=== PATIENT | female | born 1950 | race Hispanic/Latino ===

== ENCOUNTER 2021-10-22 12:29 | Inpatient (IN) | payer MEDICARE, OTHER ==
[~2021-10-22] VITALS: Ht 157.5 cm; Wt 66.8 kg
[2021-10-22 12:53] LABS: APPEARANCE,URINE Cloudy (CLEAR); BILIRUBIN,URINE Negative (NEGATIVE); COLOR,URINE Yellow (YELLOW); GLUCOSE, URINE (UA) >=1000 mg/dL (NEGATIVE); KETONES,URINE 15 mg/dL (NEGATIVE); LEUKOCYTE ESTERASE ,URINE Trace (NEGATIVE); NITRATE,URINE Positive (NEGATIVE); OCCULT BLOOD,URINE Small (NEGATIVE); PH,URINE 5.5 (5.0-8.0); PROTEIN,URINE POS 1+ mg/dL (NEGATIVE)
[2021-10-22 13:19] LABS: BASOPHILS % (AUTO) 0.3 % (0.0-5.0); EOSINOPHILS % (AUTO) 0.3 % (0.0-8.0); HEMATOCRIT 42.5 % (36-48); LYMPHOCYTES % (AUTO) 11.5 % (21.0-51.0); MEAN CORPUSCULAR HEMOGLOBIN 26.9 pg (27.0-33.0); MEAN CORPUSCULAR HGB CONC 32.7 g/dL (32.0-36.0); MEAN CORPUSCULAR VOLUME 82.4 fL (79-99); MONOCYTES % (AUTO) 7.5 % (3.0-13.0); NEUTROPHILS % (AUTO) 80.1 % (40.0-77.0); PLATELET COUNT (AUTO) 236 K/uL (130-400); RED BLOOD CELL COUNT(AUTO) 5.16 MIL/uL (4.00-5.50); RED CELL DISTRIBUTION WIDTH 14.6 % (11.0-15.5); WHITE BLOOD COUNT (AUTO) 10.6 K/uL (4.8-10.8)
[2021-10-22 13:24] LABS: RBC,URINE 0-1 /HPF (0-1)
[2021-10-22 13:25] LABS: BACTERIA,URINE Many /HPF (None Seen); SQUAMOUS EPITHELIAL CELL,UR Few /HPF (0-2)
[2021-10-22] MEDS ORDERED: INSULIN HUMULIN R 100 UNIT/ML 3ML SQ ONE (13:30)
[2021-10-22] MEDS ORDERED: 0.9%NACL 1000ML 1,000 ML IV ONE (13:30)
[2021-10-22 13:33] LABS: ALBUMIN 3.6 g/dL (3.5-5.0); BILIRUBIN,TOTAL 0.4 mg/dL (0.2-1.0); CREATININE 1.1 mg/dL (0.5-1.5); CRP QUANTITATIVE 83.7 mg/L (0.00-9.0); POTASSIUM 4.3 mmol/L (3.5-5.1); TOTAL PROTEIN, SERUM 8.5 g/dL (6.0-8.3)
[2021-10-22] MEDS ORDERED: SPIR25TA6 PO (16:10)
[2021-10-22] MEDS ORDERED: ATOR10 PO (16:10)
[2021-10-22] MEDS ORDERED: METF-444 PO (16:11)
[2021-10-22] MEDS: 0.9%NACL 1000ML 1,000 ML IV SCH (16:30)
[2021-10-22] MEDS ORDERED: ONDANSETRON 4MG INJ IV PRN (16:30)
[2021-10-22] MEDS: HYDRALAZINE 20MG/ML VIAL IV PRN (16:30)
[2021-10-22] MEDS ORDERED: VANCOMYCIN PROTOCOL PER PHARMACY IV PRN (16:30)
[2021-10-22] MEDS ORDERED: DIPHENHYDRAMINE HCL 25 MG CAPSULE PO PRN (16:30)
[2021-10-22] MEDS ORDERED: ACETAMINOPHEN 325 MG TAB PO PRN ×2 (16:30)
[2021-10-22 16:45] LABS: CHOLESTEROL 216 mg/dL (<200); HDL CHOLESTEROL 40 mg/dL (35-85); LDL DIRECT 152 mg/dL (0-99); TRIGLYCERIDES 172 mg/dL (30-200)
[2021-10-22] MEDS: FAMOTIDINE 20MG TAB PO SCH (16:46)
[2021-10-22] MEDS: INSULIN HUMULIN R 100 UNIT/ML 3ML SQ SCH (17:00)
[2021-10-22] MEDS: VANCOMYCIN 1G/250ML KIT 250 ML IV SCH (17:26)
[2021-10-22 17:27] LABS: HEMOGLOBIN A1C 12.8 % (4.0-6.0)
[2021-10-22] MEDS ORDERED: LOSA100T58 PO (19:01)
[2021-10-22] MEDS: ZOSYN 3.375GM+NS 50ML 50 ML IV SCH (20:59)
[2021-10-22] MEDS ORDERED: INSULIN GLARGINE 100 UNITS/ML 10 ML VIAL SQ SCH (21:00)
[2021-10-22] MEDS ORDERED: FAMOTIDINE 20MG VIAL IV SCH (21:00)
[2021-10-23] MEDS: 0.9%NACL 1000ML 1,000 ML IV SCH ×3 (03:15→22:28)
[2021-10-23] MEDS: ACETAMINOPHEN WITH CODEINE 1 TAB TAB PO PRN (05:21)
[2021-10-23] MEDS: ZOSYN 3.375GM+NS 50ML 50 ML IV SCH ×3 (05:21→20:19)
[2021-10-23] MEDS: INSULIN HUMULIN R 100 UNIT/ML 3ML SQ SCH ×6 (07:30→20:31)
[2021-10-23 08:46] LABS: HEMATOCRIT 40.9 % (36-48); MEAN CORPUSCULAR VOLUME 84.2 fL (79-99); RED BLOOD CELL COUNT(AUTO) 4.86 MIL/uL (4.00-5.50); RED CELL DISTRIBUTION WIDTH 14.8 % (11.0-15.5); WHITE BLOOD COUNT (AUTO) 6.2 K/uL (4.8-10.8)
[2021-10-23 08:56] LABS: CREATININE 0.9 mg/dL (0.5-1.5); POTASSIUM 4.1 mmol/L (3.5-5.1)
[2021-10-23] MEDS: ENOXAPARIN SODIUM 40 MG/0.4 ML SYRINGE SQ SCH (09:00)
[2021-10-23] MEDS: FAMOTIDINE 20MG TAB PO SCH (09:00)
[2021-10-23 09:01] LABS: BILIRUBIN,TOTAL 0.5 mg/dL (0.2-1.0); TOTAL PROTEIN, SERUM 7.5 g/dL (6.0-8.3)
[2021-10-23 12:22] VITALS: BP 171/82
[2021-10-23] MEDS: CLOPIDOGREL 75MG TAB PO SCH (12:37)
[2021-10-23] MEDS: SPIRONOLACTONE 25 MG TAB PO SCH (12:37)
[2021-10-23] MEDS: ASPIRIN 81 MG EC TAB PO SCH (12:37)
[2021-10-23] MEDS: LOSARTAN 100 MG TABLET PO SCH (12:37)
[2021-10-23] MEDS: EZETIMIBE 10 MG TAB PO SCH (12:37)
[2021-10-23 15:58] VITALS: BP 130/58
[2021-10-23] MEDS ORDERED: 0.9% NACL 250ML 250 ML ONE (16:38)
[2021-10-23] MEDS: VANCOMYCIN 1G/250ML KIT 250 ML IV SCH (16:48)
[2021-10-23] MEDS ORDERED: INSULIN HUMULIN R 100 UNIT/ML 3ML SQ SCH (17:00)
[2021-10-23 19:43] VITALS: BP 174/78
[2021-10-23] MEDS: ATORVASTATIN 40 MG TABLET PO SCH (20:19)
[2021-10-23] MEDS: INSULIN GLARGINE 100 UNITS/ML 10 ML VIAL SQ SCH (20:31)
[2021-10-23] MEDS: HYDRALAZINE 20MG/ML VIAL IV PRN (20:47)
[2021-10-24 00:28] VITALS: BP 113/61
[2021-10-24 04:16] VITALS: BP 139/62
[2021-10-24] MEDS: ZOSYN 3.375GM+NS 50ML 50 ML IV SCH ×2 (05:15→12:45)
[2021-10-24] MEDS: 0.9%NACL 1000ML 1,000 ML IV SCH ×3 (06:37→20:23)
[2021-10-24] MEDS: INSULIN HUMULIN R 100 UNIT/ML 3ML SQ SCH ×7 (06:41→20:20)
[2021-10-24 08:00] VITALS: BP 160/76
[2021-10-24] MEDS: SPIRONOLACTONE 25 MG TAB PO SCH (09:54)
[2021-10-24] MEDS: ASPIRIN 81 MG EC TAB PO SCH (09:55)
[2021-10-24] MEDS: LOSARTAN 100 MG TABLET PO SCH (09:55)
[2021-10-24] MEDS: FAMOTIDINE 20MG TAB PO SCH (09:56)
[2021-10-24] MEDS: EZETIMIBE 10 MG TAB PO SCH (09:56)
[2021-10-24] MEDS: CLOPIDOGREL 75MG TAB PO SCH (09:56)
[2021-10-24] MEDS: ENOXAPARIN SODIUM 40 MG/0.4 ML SYRINGE SQ SCH (09:57)
[2021-10-24 10:36] LABS: HEMATOCRIT 40.6 % (36-48); MEAN CORPUSCULAR HEMOGLOBIN 26.9 pg (27.0-33.0); MEAN CORPUSCULAR VOLUME 84.1 fL (79-99); RED BLOOD CELL COUNT(AUTO) 4.83 MIL/uL (4.00-5.50); WHITE BLOOD COUNT (AUTO) 6.7 K/uL (4.8-10.8)
[2021-10-24 10:50] LABS: CREATININE 0.9 mg/dL (0.5-1.5); POTASSIUM 3.5 mmol/L (3.5-5.1)
[2021-10-24 11:57] VITALS: BP 178/85
[2021-10-24] MEDS: HYDRALAZINE 20MG/ML VIAL IV PRN (12:59)
[2021-10-24] MEDS ORDERED: AMLODIPINE 5 MG TAB PO SCH (15:00)
[2021-10-24] MEDS: CEFAZOLIN SODIUM 1 GM VIAL IVP SCH ×2 (15:10→20:23)
[2021-10-24] MEDS: ACETAMINOPHEN WITH CODEINE 1 TAB TAB PO PRN (15:24)
[2021-10-24 16:00] VITALS: BP 151/70
[2021-10-24 20:00] VITALS: BP 139/72
[2021-10-24] MEDS: ATORVASTATIN 40 MG TABLET PO SCH (20:23)
[2021-10-24] MEDS: INSULIN GLARGINE 100 UNITS/ML 10 ML VIAL SQ SCH (20:31)
[2021-10-25] VITALS (25 sets, daily range): BP systolic 122–178; BP diastolic 33–93
[2021-10-25 04:51] LABS: HEMATOCRIT 34.5 % (36-48); MEAN CORPUSCULAR HEMOGLOBIN 26.4 pg (27.0-33.0); MEAN CORPUSCULAR HGB CONC 31.9 g/dL (32.0-36.0); MEAN CORPUSCULAR VOLUME 82.9 fL (79-99); RED BLOOD CELL COUNT(AUTO) 4.16 MIL/uL (4.00-5.50); RED CELL DISTRIBUTION WIDTH 15.1 % (11.0-15.5)
[2021-10-25 05:10] LABS: CREATININE 0.8 mg/dL (0.5-1.5); POTASSIUM 3.3 mmol/L (3.5-5.1)
[2021-10-25] MEDS: INSULIN HUMULIN R 100 UNIT/ML 3ML SQ SCH ×7 (05:59→21:00)
[2021-10-25] MEDS: CEFAZOLIN SODIUM 1 GM VIAL IVP SCH ×3 (06:03→21:20)
[2021-10-25] MEDS: ENOXAPARIN SODIUM 40 MG/0.4 ML SYRINGE SQ SCH (08:23)
[2021-10-25] MEDS ORDERED: BUPIVACAINE/PF 0.5% 10ML VIAL ONE (08:25)
[2021-10-25] MEDS ORDERED: LIDOCAINE HCL 1% 20 ML VIAL ONE (08:25)
[2021-10-25] MEDS ORDERED: MIDAZOLAM HCL 1 MG/ML 2ML VIAL ONE (08:49)
[2021-10-25] MEDS ORDERED: FENTANYL CITRATE PF 50 MCG/1 ML 2ML VIAL ONE (08:50)
[2021-10-25] MEDS ORDERED: PROPOFOL 10 MG/ML 20ML VIAL IV ONE (08:51)
[2021-10-25] MEDS: CLOPIDOGREL 75MG TAB PO SCH (09:00)
[2021-10-25] MEDS ORDERED: AMLODIPINE 5 MG TAB PO ONE (09:00)
[2021-10-25] MEDS: 0.9%NACL 1000ML 1,000 ML IV SCH (10:32)
[2021-10-25] MEDS: SPIRONOLACTONE 25 MG TAB PO SCH (12:19)
[2021-10-25] MEDS: EZETIMIBE 10 MG TAB PO SCH (12:20)
[2021-10-25] MEDS: ASPIRIN 81 MG EC TAB PO SCH (12:20)
[2021-10-25] MEDS: LOSARTAN 100 MG TABLET PO SCH (12:20)
[2021-10-25] MEDS: FAMOTIDINE 20MG TAB PO SCH (12:22)
[2021-10-25] MEDS: ACETAMINOPHEN WITH CODEINE 1 TAB TAB PO PRN (12:45)
[2021-10-25] MEDS ORDERED: KCL 20 MEQ ERTAB PO SCH (17:00)
[2021-10-25] MEDS: ATORVASTATIN 40 MG TABLET PO SCH (21:20)
[2021-10-25] MEDS: INSULIN GLARGINE 100 UNITS/ML 10 ML VIAL SQ SCH (21:31)
[2021-10-25] MEDS: HYDRALAZINE 20MG/ML VIAL IV PRN (23:26)
[2021-10-26 03:36] VITALS: BP 139/73
[2021-10-26 04:27] LABS: HEMATOCRIT 36.1 % (36-48); MEAN CORPUSCULAR HEMOGLOBIN 26.3 pg (27.0-33.0); MEAN CORPUSCULAR HGB CONC 31.6 g/dL (32.0-36.0); MEAN CORPUSCULAR VOLUME 83.4 fL (79-99); RED BLOOD CELL COUNT(AUTO) 4.33 MIL/uL (4.00-5.50)
[2021-10-26 04:42] LABS: CREATININE 0.9 mg/dL (0.5-1.5); POTASSIUM 3.6 mmol/L (3.5-5.1)
[2021-10-26] MEDS: CEFAZOLIN SODIUM 1 GM VIAL IVP SCH ×3 (05:19→20:17)
[2021-10-26] MEDS: INSULIN HUMULIN R 100 UNIT/ML 3ML SQ SCH ×7 (06:16→20:30)
[2021-10-26] MEDS: ACETAMINOPHEN WITH CODEINE 1 TAB TAB PO PRN ×2 (06:20→20:21)
[2021-10-26] MEDS ORDERED: MORPHINE 2 MG SYG IVP PRN ×2 (07:00→07:30)
[2021-10-26 08:44] VITALS: BP 131/68
[2021-10-26] MEDS: ENOXAPARIN SODIUM 40 MG/0.4 ML SYRINGE SQ SCH (09:00)
[2021-10-26] MEDS: SPIRONOLACTONE 25 MG TAB PO SCH (09:44)
[2021-10-26] MEDS: LOSARTAN 100 MG TABLET PO SCH (09:44)
[2021-10-26] MEDS: EZETIMIBE 10 MG TAB PO SCH (09:44)
[2021-10-26] MEDS: CLOPIDOGREL 75MG TAB PO SCH (09:44)
[2021-10-26] MEDS: FAMOTIDINE 20MG TAB PO SCH (09:45)
[2021-10-26] MEDS: ASPIRIN 81 MG EC TAB PO SCH (09:45)
[2021-10-26 11:22] VITALS: BP 138/73
[2021-10-26] MEDS ORDERED: KCL 20 MEQ ERTAB PO SCH (11:30)
[2021-10-26 17:10] VITALS: BP 155/80
[2021-10-26 19:42] VITALS: BP 143/79
[2021-10-26] MEDS: ATORVASTATIN 40 MG TABLET PO SCH (20:17)
[2021-10-26] MEDS: INSULIN GLARGINE 100 UNITS/ML 10 ML VIAL SQ SCH (20:31)
[2021-10-26 23:21] VITALS: BP 135/69
[2021-10-27 03:20] VITALS: BP 130/67
[2021-10-27 04:27] LABS: HEMATOCRIT 34.7 % (36-48); MEAN CORPUSCULAR HEMOGLOBIN 26.8 pg (27.0-33.0); MEAN CORPUSCULAR VOLUME 83.8 fL (79-99); RED BLOOD CELL COUNT(AUTO) 4.14 MIL/uL (4.00-5.50); RED CELL DISTRIBUTION WIDTH 15.1 % (11.0-15.5); WHITE BLOOD COUNT (AUTO) 8.3 K/uL (4.8-10.8)
[2021-10-27 04:46] LABS: INR 1.03 (0.85-1.15); PROTHROMBIN TIME 11.2 SEC (9.6-11.6)
[2021-10-27 04:48] LABS: CREATININE 0.9 mg/dL (0.5-1.5); PARTIAL THROMBOPLASTIN TIME 28.2 SEC (26.3-35.5); POTASSIUM 3.9 mmol/L (3.5-5.1)
[2021-10-27] MEDS: CEFAZOLIN SODIUM 1 GM VIAL IVP SCH ×3 (05:39→23:00)
[2021-10-27] MEDS: INSULIN HUMULIN R 100 UNIT/ML 3ML SQ SCH ×7 (05:45→21:20)
[2021-10-27 08:19] VITALS: BP 141/76
[2021-10-27] MEDS: FAMOTIDINE 20MG TAB PO SCH (09:18)
[2021-10-27] MEDS: EZETIMIBE 10 MG TAB PO SCH (09:18)
[2021-10-27] MEDS: SPIRONOLACTONE 25 MG TAB PO SCH (09:18)
[2021-10-27] MEDS: ASPIRIN 81 MG EC TAB PO SCH (09:18)
[2021-10-27] MEDS: LOSARTAN 100 MG TABLET PO SCH (09:19)
[2021-10-27] MEDS: CLOPIDOGREL 75MG TAB PO SCH (09:20)
[2021-10-27] MEDS: ENOXAPARIN SODIUM 40 MG/0.4 ML SYRINGE SQ SCH (09:22)
[2021-10-27 11:35] VITALS: BP 152/76
[2021-10-27 16:41] VITALS: BP 161/91
[2021-10-27] MEDS: ATORVASTATIN 40 MG TABLET PO SCH (20:11)
[2021-10-27] MEDS: ACETAMINOPHEN WITH CODEINE 1 TAB TAB PO PRN (20:12)
[2021-10-27] MEDS: INSULIN GLARGINE 100 UNITS/ML 10 ML VIAL SQ SCH (21:20)
[2021-10-27 21:47] VITALS: BP 143/76
[2021-10-28] VITALS (11 sets, daily range): BP systolic 134–185; BP diastolic 70–94
[2021-10-28 04:41] LABS: HEMATOCRIT 34.9 % (36-48); MEAN CORPUSCULAR HEMOGLOBIN 26.4 pg (27.0-33.0); MEAN CORPUSCULAR HGB CONC 31.8 g/dL (32.0-36.0); MEAN CORPUSCULAR VOLUME 82.9 fL (79-99); RED BLOOD CELL COUNT(AUTO) 4.21 MIL/uL (4.00-5.50); RED CELL DISTRIBUTION WIDTH 14.9 % (11.0-15.5); WHITE BLOOD COUNT (AUTO) 7.6 K/uL (4.8-10.8)
[2021-10-28 04:54] LABS: CREATININE 0.9 mg/dL (0.5-1.5); POTASSIUM 3.5 mmol/L (3.5-5.1)
[2021-10-28] MEDS: INSULIN HUMULIN R 100 UNIT/ML 3ML SQ SCH ×7 (05:53→21:18)
[2021-10-28] MEDS: CEFAZOLIN SODIUM 1 GM VIAL IVP SCH ×3 (06:37→21:15)
[2021-10-28] MEDS: ASPIRIN 81 MG EC TAB PO SCH (09:18)
[2021-10-28] MEDS: FAMOTIDINE 20MG TAB PO SCH (09:18)
[2021-10-28] MEDS: LOSARTAN 100 MG TABLET PO SCH (09:18)
[2021-10-28] MEDS: ENOXAPARIN SODIUM 40 MG/0.4 ML SYRINGE SQ SCH (09:18)
[2021-10-28] MEDS: SPIRONOLACTONE 25 MG TAB PO SCH (09:18)
[2021-10-28] MEDS: CLOPIDOGREL 75MG TAB PO SCH (09:18)
[2021-10-28] MEDS: EZETIMIBE 10 MG TAB PO SCH (09:18)
[2021-10-28] MEDS ORDERED: SODIUM BICARB 50MEQ 50ML VIAL 50 ML ONE (11:41)
[2021-10-28] MEDS ORDERED: HEPARIN 10,000 UNIT/10ML (1,000 UNIT/ML) VIAL ONE ×2 (11:41→14:14)
[2021-10-28] MEDS ORDERED: FENTANYL CITRATE PF 50 MCG/1 ML 2ML VIAL ONE (11:42)
[2021-10-28] MEDS ORDERED: IODIXANOL 320 MG/ML 100 ML VIAL ONE (11:42)
[2021-10-28] MEDS ORDERED: MIDAZOLAM HCL 1 MG/ML 2ML VIAL ONE (11:42)
[2021-10-28] MEDS ORDERED: LIDOCAINE HCL 400MG/20ML VIAL ONE (11:42)
[2021-10-28] MEDS ORDERED: NITROGLYCERIN 2 MG VIAL IV ONE (11:42)
[2021-10-28] MEDS ORDERED: ASPIRIN 325MG EC TAB PO ONE (13:21)
[2021-10-28] MEDS ORDERED: CLOPIDOGREL 300MG TAB ONE (13:21)
[2021-10-28] MEDS ORDERED: 0.9%NACL 1000ML 1,000 ML IV SCH (15:00)
[2021-10-28] MEDS: HYDRALAZINE 20MG/ML VIAL IV PRN (16:44)
[2021-10-28] MEDS: ACETAMINOPHEN WITH CODEINE 1 TAB TAB PO PRN (21:15)
[2021-10-28] MEDS: ATORVASTATIN 40 MG TABLET PO SCH (21:15)
[2021-10-28] MEDS: INSULIN GLARGINE 100 UNITS/ML 10 ML VIAL SQ SCH (21:18)
[2021-10-29] VITALS: BP 133/66
[2021-10-29 04:00] VITALS: BP 141/70
[2021-10-29 04:51] LABS: HEMATOCRIT 33.8 % (36-48); MEAN CORPUSCULAR HEMOGLOBIN 26.2 pg (27.0-33.0); MEAN CORPUSCULAR HGB CONC 31.7 g/dL (32.0-36.0); MEAN CORPUSCULAR VOLUME 82.8 fL (79-99); RED BLOOD CELL COUNT(AUTO) 4.08 MIL/uL (4.00-5.50); RED CELL DISTRIBUTION WIDTH 15.1 % (11.0-15.5); WHITE BLOOD COUNT (AUTO) 7.4 K/uL (4.8-10.8)
[2021-10-29 05:07] LABS: CREATININE 0.9 mg/dL (0.5-1.5); POTASSIUM 3.6 mmol/L (3.5-5.1)
[2021-10-29] MEDS: CEFAZOLIN SODIUM 1 GM VIAL IVP SCH ×3 (05:56→21:29)
[2021-10-29] MEDS: INSULIN HUMULIN R 100 UNIT/ML 3ML SQ SCH ×5 (06:19→21:39)
[2021-10-29 08:00] VITALS: BP 144/78
[2021-10-29] MEDS: LOSARTAN 100 MG TABLET PO SCH (09:41)
[2021-10-29] MEDS: SPIRONOLACTONE 25 MG TAB PO SCH (09:41)
[2021-10-29] MEDS: ASPIRIN 81 MG EC TAB PO SCH (09:41)
[2021-10-29] MEDS: EZETIMIBE 10 MG TAB PO SCH (09:41)
[2021-10-29] MEDS: FAMOTIDINE 20MG TAB PO SCH (09:42)
[2021-10-29] MEDS: CLOPIDOGREL 75MG TAB PO SCH (09:42)
[2021-10-29 12:00] VITALS: BP 148/73
[2021-10-29] MEDS ORDERED: MAGNESIUM 2GM PREMIX 50ML 50 ML IV PRN (12:00)
[2021-10-29] MEDS: FLUCONAZOLE 100 MG TAB PO SCH (14:29)
[2021-10-29 16:00] VITALS: BP 151/84
[2021-10-29 20:00] VITALS: BP 160/81
[2021-10-29] MEDS: ATORVASTATIN 40 MG TABLET PO SCH (21:29)
[2021-10-29] MEDS: INSULIN GLARGINE 100 UNITS/ML 10 ML VIAL SQ SCH (21:41)
[2021-10-30] VITALS: BP 144/65
[2021-10-30 04:00] VITALS: BP 149/67
[2021-10-30] MEDS: CEFAZOLIN SODIUM 1 GM VIAL IVP SCH ×2 (04:13→13:12)
[2021-10-30] MEDS: INSULIN HUMULIN R 100 UNIT/ML 3ML SQ SCH ×6 (06:07→17:06)
[2021-10-30 07:47] VITALS: BP 140/75
[2021-10-30] MEDS ORDERED: ATOR40TA69 PO (08:24)
[2021-10-30] MEDS ORDERED: CLOP75TA14 PO (08:24)
[2021-10-30] MEDS ORDERED: AEC81 PO (08:24)
[2021-10-30] MEDS: SPIRONOLACTONE 25 MG TAB PO SCH (10:06)
[2021-10-30] MEDS: EZETIMIBE 10 MG TAB PO SCH (10:07)
[2021-10-30] MEDS: ASPIRIN 81 MG EC TAB PO SCH (10:07)
[2021-10-30] MEDS: FAMOTIDINE 20MG TAB PO SCH (10:07)
[2021-10-30] MEDS: LOSARTAN 100 MG TABLET PO SCH (10:07)
[2021-10-30] MEDS: CLOPIDOGREL 75MG TAB PO SCH (10:07)
[2021-10-30 12:00] VITALS: BP 169/84
[2021-10-30] MEDS: FLUCONAZOLE 100 MG TAB PO SCH (14:23)
[2021-10-30 16:00] VITALS: BP 179/88
[2021-10-30 17:45] VITALS: BP 148/79
== END 2021-10-30 20:12 | DRG 240 ==
LOC: EDH 12:29 → EDHIP 16:13 → 3CH 10-23 10:57
PROVIDERS: ADMIT Hospitalist; ATTEND Hospitalist
PROC: 0JBR0ZZ Excision of Left Foot Subcutaneous Tissue and Fascia, Open Approach (ICD-10-PCS; 2021-10-22)
PROC: 0HBRXZZ Excision of Toe Nail, External Approach (ICD-10-PCS; 2021-10-22)
PROC: 0HBRXZZ Excision of Toe Nail, External Approach (ICD-10-PCS; 2021-10-22)
PROC: 0HBRXZZ Excision of Toe Nail, External Approach (ICD-10-PCS; 2021-10-22)
PROC: 0HBRXZZ Excision of Toe Nail, External Approach (ICD-10-PCS; 2021-10-22)
PROC: 0HBRXZZ Excision of Toe Nail, External Approach (ICD-10-PCS; 2021-10-22)
PROC: 0HBRXZZ Excision of Toe Nail, External Approach (ICD-10-PCS; 2021-10-22)
PROC: 0HBRXZZ Excision of Toe Nail, External Approach (ICD-10-PCS; 2021-10-22)
PROC: 0HBRXZZ Excision of Toe Nail, External Approach (ICD-10-PCS; 2021-10-22)
PROC: 0HBRXZZ Excision of Toe Nail, External Approach (ICD-10-PCS; 2021-10-22)
PROC: 0HBRXZZ Excision of Toe Nail, External Approach (ICD-10-PCS; 2021-10-22)
PROC: 0Y6N0ZC Detachment at Left Foot, Partial 3rd Ray, Open Approach (ICD-10-PCS; principal; 2021-10-25 09:44)
PROC: 047L3ZZ Dilation of Left Femoral Artery, Percutaneous Approach (ICD-10-PCS; 2021-10-28)
PROC: 047N3ZZ Dilation of Left Popliteal Artery, Percutaneous Approach (ICD-10-PCS; 2021-10-28)
PROC: 047U34Z Dilation of Left Peroneal Artery with Drug-eluting Intraluminal Device, Percutaneous Approach (ICD-10-PCS; 2021-10-28)
PROC: B4101ZZ Fluoroscopy of Abdominal Aorta using Low Osmolar Contrast (ICD-10-PCS; 2021-10-28)
PROC: B41G1ZZ Fluoroscopy of Left Lower Extremity Arteries using Low Osmolar Contrast (ICD-10-PCS; 2021-10-28)
DX: T82.856A Stenosis of peripheral vascular stent, initial encounter (principal); E11.52 Type 2 diabetes mellitus with diabetic peripheral angiopathy with gangrene; I70.262 Atherosclerosis of native arteries of extremities with gangrene, left leg; N39.0 Urinary tract infection, site not specified; L03.116 Cellulitis of left lower limb; M86.8X7 Other osteomyelitis, ankle and foot; M00.872 Arthritis due to other bacteria, left ankle and foot; E11.65 Type 2 diabetes mellitus with hyperglycemia; I10 Essential (primary) hypertension; E78.5 Hyperlipidemia, unspecified; E11.621 Type 2 diabetes mellitus with foot ulcer; E11.69 Type 2 diabetes mellitus with other specified complication; E66.9 Obesity, unspecified; B96.20 Unspecified Escherichia coli [E. coli] as the cause of diseases classified elsewhere; Z20.822 Contact with and (suspected) exposure to COVID-19; E78.00 Pure hypercholesterolemia, unspecified; B35.1 Tinea unguium; L60.2 Onychogryphosis; E11.42 Type 2 diabetes mellitus with diabetic polyneuropathy; R09.89 Other specified symptoms and signs involving the circulatory and respiratory systems; L97.529 Non-pressure chronic ulcer of other part of left foot with unspecified severity; L60.8 Other nail disorders; I65.21 Occlusion and stenosis of right carotid artery; B95.1 Streptococcus, group B, as the cause of diseases classified elsewhere; B95.4 Other streptococcus as the cause of diseases classified elsewhere; Y83.8 Other surgical procedures as the cause of abnormal reaction of the patient, or of later complication, without mention of misadventure at the time of the procedure; Z68.26 Body mass index [BMI] 26.0-26.9, adult; Y92.89 Other specified places as the place of occurrence of the external cause; Z79.82 Long term (current) use of aspirin; Z79.02 Long term (current) use of antithrombotics/antiplatelets; Z79.84 Long term (current) use of oral hypoglycemic drugs; Z79.899 Other long term (current) drug therapy; Z83.3 Family history of diabetes mellitus
CPT/HCPCS: 36415; 37224; 37230; 71045; 73630; 73718; 75710; 75716; 80048; 80053; 80061; 80202; 81001; 82010; 82948; 83036; 83605; 83735; 84484; 85025; 85027; 85610; 85651; 85730; 86140; 87040; 87070; 87076; 87077; 87088; 87186; 87205; 87635; 93005; 93880; 93926; 97039; 99156; 99157; C1760; C1769; C1894; G0378; J0360; J0690; J1644; J1650; J1815; J2250; J2543; J2704; J3010; J3370; J3475; J3490; J7030; J7050; Q9967

== ENCOUNTER → 2023-04-13 | Outpatient (CLI) | payer MEDICARE ==
[~2023-04-13] MED LIST: AMOX1TAB16 PO; ATOR10 PO; CLOP-31 PO; LOSA100T59 PO; METF-444 PO; METR-172 PO
== END | disposition home or self-care (01) ==
LOC: RAH 11:44
PROVIDERS: ATTEND Family Medicine
DX: Z12.31 Encounter for screening mammogram for malignant neoplasm of breast (principal)
CPT/HCPCS: 77067

== ENCOUNTER → 2024-10-30 | Outpatient (CLI) | payer MEDICARE, OTHER | END | disposition home or self-care (01) | LOC: LAB 10:10 | PROVIDERS: ATTEND Internal Medicine | DX: I25.10 Atherosclerotic heart disease of native coronary artery without angina pectoris (principal); I25.5 Ischemic cardiomyopathy | CPT/HCPCS: 36415; 83880 ==